=== PATIENT | female | born 1990 | race Caucasian/White ===

== ENCOUNTER 2024-12-13 16:11 | Emergency (ER) | payer BC ==
[2024-12-13] MEDS ORDERED: dexAMETHasone 10 MG/ML VIAL ONE (17:45)
[2024-12-13] MEDS ORDERED: predniSONE 20 MG TAB ONE (17:45)
[2024-12-13] MEDS ORDERED: DIPHENHYDRAMINE 50 MG/ML VIAL ONE (17:45)
[2024-12-13] MEDS ORDERED: FAMOTIDINE 20 MG/2 ML VIAL IV ONE (17:45)
[2024-12-13] MEDS ORDERED: ONDANSETRON 4 MG/2 ML VIAL ONE (17:45)
[2024-12-13] MEDS ORDERED: NA CHLORIDE 0.9% 1,000 ML ONE (17:46)
[2024-12-13 17:51] LABS: Absolute Basophils 0.1 K/uL (0-0.5); Absolute Eosinophils 0.1 K/uL (0-0.5); Absolute Lymphocytes (CBC) 2.1 K/uL (0.7-4.9); Absolute Monocytes 0.6 K/uL (0.1-1.3); Basophils % 0.6 % (0-1.3); Eosinophils % 0.4 % (0-4.4); Hematocrit 43.6 % (36.0-45.0); Hemoglobin 14.6 g/dL (12.0-15.0); Lymphocytes % 16.5 % (15.3-44.8); MCH 30.6 pg (27.0-35.0); MCHC 33.5 g/dL (32.0-36.0); MCV 91.5 fL (80-100); MPV 8.4 fL (7.6-11.3); Monocytes % 4.6 % (3.3-12.3); Neutrophils % 77.9 % (41.7-73.7); Nucleated Red Blood Cells % 0.1 % (0-0); Platelets 332 thou/uL (152-406); RBC Red Blood Cell Count 4.76 M/uL (3.86-4.86); Red Cell Distribution Width 13.6 % (12.1-15.2)
[2024-12-13 17:55] LABS: Specific Gravity 1.026 (1.005-1.030)
[2024-12-13 18:07] LABS: Specific Gravity 1.026 (1.005-1.030); Sqamous Epithelial <5 /HPF (None Seen); Urine Bacteria None Seen /HPF (<20); Urine Bilirubin NEGATIVE (Negative); Urine Blood Trace (Negative); Urine Clarity Turbid (Clear); Urine Color Yellow (Yellow); Urine Culture Reflex Order NOT NEEDED; Urine Glucose NEGATIVE (Negative); Urine Ketones NEGATIVE (Negative); Urine Microscopic Reflex YN ORDER UMIC; Urine Mucus 2+ /HPF (None Seen); Urine Nitrite NEGATIVE (Negative); Urine Protein NEGATIVE (Negative); Urine RBC None Seen /HPF (None Seen); Urine Urobilinogen Normal (Normal); Urine WBC None Seen /HPF (<5); Urine pH 5.5 (5.0-7.0)
[2024-12-13 18:10] LABS: ALT/SGPT 16 U/L (13-56); Albumin 3.3 g/dL (3.4-5.0); Albumin/Globulin Ratio 0.9 (1.1-1.8); Alkaline Phosphatase 53 U/L (45-117); Anion Gap 9.2 mEq/L (5.0-15.0); BUN Blood Urea Nitrogen 11 mg/dL (7-18); Bicarbonate 24 mEq/L (21-32); Bilirubin Total 0.5 mg/dL (0.2-1.0); Globulin 3.7 g/dL (2.3-3.5); Glomerular Filtration Rate 68 ml/min (=/>90); Glucose Level 99 mg/dL (74-106); Potassium 4.2 mEq/L (3.5-5.1); Sodium Level 138 mEq/L (136-145)
[2024-12-13 18:19] LABS: AST/SGOT < 10 U/L (15-37)
--- NOTE | 2024-12-13 18:46 | ER ---
Nurse's Notes [facility] Name: Sharon Correa Age: 34 yrs Sex: Female : 1990 Arrival Date: 12/13/2024 Time: 16:11 Bed 4 Private MD: Diagnosis: Nausea with vomiting, unspecified;Diarrhea, unspecified;Abdominal pain, Generalized;Urticaria, unspecified Presentation: 12/13 16:57 Chief complaint: Patient states: about 7:30 this morning patient started having me1 abdominal cramps, n/v/d with cold sweats that lasted for 3 hours, associated lightheadedness and developed hives all over her body. Took benadryl and hives have resolved. The same thing happened on November 20 while honeymooning in [place] but this time symptoms were much more severe than before. Coronavirus screen: Vaccine status: Patient reports being unvaccinated. Ebola Screen: No symptoms or risks identified at this time. Initial Sepsis Screen: Does the patient meet any 2 criteria? HR > 90 bpm. Does the patient have a suspected source of infection? No. Patient's initial sepsis screen is negative. Risk Assessment: Do you want to hurt yourself or someone else? Patient reports no desire to harm self or others. Onset of symptoms was December 13, 2024 at 07:30. 16:57 Method Of Arrival: Ambulatory [facility] 16:57 Acuity: GREG 3 me1 Triage Assessment: 17:05 General: Appears in no apparent distress. comfortable, Behavior is cooperative, bp appropriate for age, anxious. Pain: Denies pain. EENT: No deficits noted. Neuro: No deficits noted. Cardiovascular: No deficits noted. Respiratory: No deficits noted. GI: Reports diarrhea, nausea, vomiting. : No signs and/or symptoms were reported regarding the genitourinary system. Derm: Reports itching. Musculoskeletal: No deficits noted. 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 - Infectious Disease History:: Denies. - Social history:: Smoking status: Patient denies any tobacco usage or history of. Screenin:56 [facility] ED Fall Risk Assessment (Adult) History of falling in the last 3 months, bp including since admission No falls in past 3 months (0 pts) Confusion or Disorientation No (0 pts) Intoxicated or Sedated No (0 pts) Impaired Gait No (0 pts) Mobility Assist Device Used No (0 pt) Altered Elimination No (0 pt) Score/Fall Risk Level 0 - 2 = Low Risk Oriented to surroundings. Abuse screen: Denies threats or abuse. Denies injuries from another. Nutritional screening: No deficits noted. Tuberculosis screening: No symptoms or risk factors identified. Assessment: 17:10 General: Appears in no apparent distress. comfortable, Behavior is calm, cooperative, bp appropriate for age. Pain: Denies pain. Neuro: No deficits noted. Cardiovascular: No deficits noted. Respiratory: Airway is patent Respiratory effort is even, unlabored. GI: Abdomen is non-distended. : No signs and/or symptoms were reported regarding the genitourinary system. EENT: No deficits noted. Derm: Reports itching. Musculoskeletal: No deficits noted. 19:19 Reassessment: Patient appears in no apparent distress at this time. Patient and/or bm8 family updated on plan of care and expected duration. Pain level reassessed. Patient is alert, oriented x 3, equal unlabored respirations, skin warm/dry/pink. Patient denies pain at this time. Patient states feeling better. Patient states symptoms have improved. 19:23 Reassessment: Pt waiting for DR nielsen to speak with them before leaving. bm8 Vital Signs: 16:57 BP 118 / 87; Pulse 112; Resp 18; Temp 98.2; Pulse Ox 99% ; Weight 113.4 kg; Height 5 me1 ft. 9 in. ; Pain 4/10; 19:19 BP 117 / 70; Pulse 85; Resp 18; Temp 98.2; Pulse Ox 99% ; Pain 0/10; bm8 16:57 Body Mass Index 36.92 (113.40 kg, 175.26 cm) me1 16:57 Pain Scale: Adult me1 19:19 Pain Scale: Adult bm8 [place] Coma Score: 19:19 Eye Response: spontaneous(4). Motor Response: obeys commands(6). Verbal Response: bm8 oriented(5). Total: 15. ED Course: 16:25 Patient arrived in ED. ts1 16:48 Jaylon Nielsen MD is Attending Physician. kary 17:01 Triage completed. me1 17:01 Arm band placed on Patient placed in waiting room. me1 17:38 Nghia Oconnor, RN is Primary Nurse. bp 17:54 Initial lab(s) drawn, by co, sent to lab. Urine collected: clean catch specimen, clear. bp Inserted saline lock: 20 gauge in right antecubital area, using aseptic technique. Blood collected. Flushed with 10 mL NS. 17:56 Patient has correct armband on for positive identification. bp 18:44 Trinity Boland MD is Referral Physician. kary 18:44 Nabil Covington MD is Referral Physician. [facility] 19:19 Provided Education on: post er care, wound care. bm8 19:19 No provider procedures requiring assistance completed. IV discontinued, intact, bm8 bleeding controlled, No redness/swelling at site. Pressure dressing applied. Administered Medications: 17:54 Drug: Famotidine IVP 40 mg IVP once; dilute with 10 mL 0.9% NaCl; give over 2 minutes bp Route: IVP; Site: right antecubital; 19:21 Follow up: Response: No adverse reaction bm8 17:54 Drug: Decadron - Dexamethasone IVP 10 mg IVP once Route: IVP; Site: right antecubital; bp 19:21 Follow up: Response: No adverse reaction bm8 17:54 Drug: predniSONE PO 40 mg PO once Route: PO; bp 19:21 Follow up: Response: No adverse reaction bm8 17:55 Drug: NS 0.9% IV 1000 ml IV at 1000 ml once; to be given as a bolus over 60 minutes bp Route: IV; Rate: 1000 ml; Site: right antecubital; 19:22 Follow up: Response: No adverse reaction; IV Status: Completed infusion bm8 17:55 Drug: Ondansetron IVP 8 mg IVP once; over 2 minutes Route: IVP; Site: right antecubital;bp 19:22 Follow up: Response: No adverse reaction bm8 17:55 Drug: diphenhydrAMINE IVP 50 mg IVP once Route: IVP; Site: right antecubital; bp 19:22 Follow up: Response: No adverse reaction bm8 19:19 Drug: Onokhuig-Hgjekhbfzl-Zkejxdeax Topical Ointment 1 application Topical once Route: bm8 Topical; Site: affected area; Medication: 19:19 VIS not applicable for this client. bm8 Outcome: 18:45 Discharge ordered by . kary 19:19 Discharged to home ambulatory, with family, bm8 19:19 Condition: stable 19:19 Discharge instructions given to patient, family, Instructed on discharge instructions, follow up and referral plans. no drinking with medication, no driving heavy equipment, medication usage, safety practices, Demonstrated understanding of instructions, follow-up care, medications, Prescriptions given X x5 19:28 Patient left the ED. bm8 Signatures: Jaylon Nielsen MD MD cha Peltier, Brian, RN RN bp Allyn Oliva, PAS PAS ts1 Hanna Cortés, RN RN me1 Jordan Miranda RN RN bm8
--- NOTE | 2024-12-13 18:46 | EDPHYS ---
Physician Documentation [facility] Name: Sharon Correa Age: 34 yrs Sex: Female : 1990 Arrival Date: 12/13/2024 Time: 16:11 Bed 4 Private MD: ED Physician Jaylon Nielsen HPI: 12/13 18:42 This 34 yrs old Female presents to ER via Ambulatory with complaints of kary Nausea/Vomiting/Diarrhea, Hives. 18:42 The patient presents to the emergency department with nausea, vomiting, diarrhea, that kary is continuous. Onset: The symptoms/episode began/occurred this morning. Possible causes: unknown. The symptoms are aggravated by nothing. The symptoms are alleviated by nothing. Associated signs and symptoms: Pertinent positives: abdominal pain, diarrhea, nausea, vomiting. Severity of symptoms: At their worst the symptoms were moderate in the emergency department the symptoms are unchanged. The patient has not experienced similar symptoms in the past. 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 - Infectious Disease History:: Denies. - Social history:: Smoking status: Patient denies any tobacco usage or history of. ROS: 18:43 Constitutional: Negative for fever, chills, and weight loss, Eyes: Negative for injury, kary pain, redness, and discharge, ENT: Negative for injury, pain, and discharge, Neck: Negative for injury, pain, and swelling, Respiratory: Negative for shortness of breath, cough, wheezing, and pleuritic chest pain, Back: Negative for injury and pain, : Negative for injury, bleeding, discharge, and swelling, MS/Extremity: Negative for injury and deformity, Skin: Negative for injury, rash, and discoloration, Neuro: Negative for headache, weakness, numbness, tingling, and seizure, Psych: Negative for depression, anxiety, suicide ideation, homicidal ideation, and hallucinations, Allergy/Immunology: Negative for hives, rash, and allergies, Endocrine: Negative for neck swelling, polydipsia, polyuria, polyphagia, and marked weight changes, Hematologic/Lymphatic: Negative for swollen nodes, abnormal bleeding, and unusual bruising, 18:43 Cardiovascular: Positive for palpitations, 18:43 Abdomen/GI: Positive for abdominal pain, nausea and vomiting, diarrhea, Exam: 18:43 Constitutional: This is a well developed, well nourished patient who is awake, alert, kary and in no acute distress. Head/Face: Normocephalic, atraumatic. Eyes: Pupils equal round and reactive to light, extra-ocular motions intact. Lids and lashes normal. Conjunctiva and sclera are non-icteric and not injected. Cornea within normal limits. Periorbital areas with no swelling, redness, or edema. ENT: Nares patent. No nasal discharge, no septal abnormalities noted. Tympanic membranes are normal and external auditory canals are clear. Oropharynx with no redness, swelling, or masses, exudates, or evidence of obstruction, uvula midline. Mucous membranes moist. Neck: Trachea midline, no thyromegaly or masses palpated, and no cervical lymphadenopathy. Supple, full range of motion without nuchal rigidity, or vertebral point tenderness. No Meningismus. Chest/axilla: Normal chest wall appearance and motion. Nontender with no deformity. No lesions are appreciated. Cardiovascular: Regular rate and rhythm with a normal S1 and S2. No gallops, murmurs, or rubs. Normal PMI, no JVD. No pulse deficits. Respiratory: Lungs have equal breath sounds bilaterally, clear to auscultation and percussion. No rales, rhonchi or wheezes noted. No increased work of breathing, no retractions or nasal flaring. Abdomen/GI: Soft, non-tender, with normal bowel sounds. No distension or tympany. No guarding or rebound. No evidence of tenderness throughout. Back: No spinal tenderness. No costovertebral tenderness. Full range of motion. Skin: Warm, dry with normal turgor. Normal color with no rashes, no lesions, and no evidence of cellulitis. MS/ Extremity: Pulses equal, no cyanosis. Neurovascular intact. Full, normal range of motion., bilateral aka Neuro: Awake and alert, GCS 15, oriented to person, place, time, and situation. Cranial nerves II-XII grossly intact. Motor strength 5/5 in all extremities. Sensory grossly intact. Cerebellar exam normal. Normal gait. Psych: Awake, alert, with orientation to person, place and time. Behavior, mood, and affect are within normal limits. 18:43 Abdomen/GI: Inspection: abdomen appears normal, Bowel sounds: normal, Palpation: soft, nontender, in all quadrants, Liver: no appreciated palpable abnormalities, Hernia: not appreciated, Vital Signs: 16:57 BP 118 / 87; Pulse 112; Resp 18; Temp 98.2; Pulse Ox 99% ; Weight 113.4 kg; Height 5 me1 ft. 9 in. ; Pain 4/10; 19:19 BP 117 / 70; Pulse 85; Resp 18; Temp 98.2; Pulse Ox 99% ; Pain 0/10; bm8 16:57 Body Mass Index 36.92 (113.40 kg, 175.26 cm) me1 16:57 Pain Scale: Adult me1 19:19 Pain Scale: Adult bm8 Dru Coma Score: 19:19 Eye Response: spontaneous(4). Motor Response: obeys commands(6). Verbal Response: bm8 oriented(5). Total: 15. MDM: 16:48 Medical Screening Exam initiated [facility] 12/13 16:49 Order name: CBC with Diff; Complete Time: 18:42 [facility] 12/13 16:49 Order name: CMP; Complete Time: 18:42 [facility] 12/13 16:49 Order name: PREGU; Complete Time: 18:42 [facility] 12/13 16:49 Order name: UA Rfx Manuel Cult if indicated; Complete Time: 18:42 [facility] 12/13 18:49 Order name: Wound dressing: GREAT TOE; Complete Time: 19:02 [facility] Administered Medications: 17:54 Drug: Famotidine IVP 40 mg IVP once; dilute with 10 mL 0.9% NaCl; give over 2 minutes bp Route: IVP; Site: right antecubital; 19:21 Follow up: Response: No adverse reaction bm8 17:54 Drug: Decadron - Dexamethasone IVP 10 mg IVP once Route: IVP; Site: right antecubital; bp 19:21 Follow up: Response: No adverse reaction bm8 17:54 Drug: predniSONE PO 40 mg PO once Route: PO; bp 19:21 Follow up: Response: No adverse reaction bm8 17:55 Drug: NS 0.9% IV 1000 ml IV at 1000 ml once; to be given as a bolus over 60 minutes bp Route: IV; Rate: 1000 ml; Site: right antecubital; 19:22 Follow up: Response: No adverse reaction; IV Status: Completed infusion bm8 17:55 Drug: Ondansetron IVP 8 mg IVP once; over 2 minutes Route: IVP; Site: right antecubital;bp 19:22 Follow up: Response: No adverse reaction bm8 17:55 Drug: diphenhydrAMINE IVP 50 mg IVP once Route: IVP; Site: right antecubital; bp 19:22 Follow up: Response: No adverse reaction bm8 19:19 Drug: Yieimggs-Ogzmfvvvti-Lcrtexuyg Topical Ointment 1 application Topical once Route: bm8 Topical; Site: affected area; Disposition Summary: 12/13/24 18:45 Discharge Ordered Notes: Location: Home kary Problem: new kary Symptoms: have improved kary Condition: Stable kary Diagnosis - Nausea with vomiting, unspecified kary - Diarrhea, unspecified kary - Abdominal pain, Generalized kary - Urticaria, unspecified kary Followup: kary - With: Private Physician - When: 2 - 3 days - Reason: Recheck today's complaints, Continuance of care, Re-evaluation by your physician Followup: kary - With: Trinity Boland MD - When: 2 - 3 days - Reason: Recheck today's complaints, Re-evaluation by your physician Followup: kary - With: Nabil Covington MD - When: 2 - 3 days - Reason: Recheck today's complaints, Re-evaluation by your physician Discharge Instructions: - Discharge Summary Sheet kary - Abdominal Pain, Adult kary - Food Choices to Help Relieve Diarrhea, Adult kary - Diarrhea, Adult kary - Hives kary - Nausea and Vomiting, Adult kary - Abdominal Pain, Adult, Oetg-wz-Hxui kary - Hives, [id number] [facility] Forms: - Medication Reconciliation Form [facility] - Antibiotic Education kary - Prescription Opioid Use [facility] - Patient Portal Instructions [facility] - Leadership Thank You Letter [facility] Prescriptions: - ondansetron 4 mg Oral Tablet,disintegrating - take 1 tablet ORAL route every 6 hours as needed for nausea and vomiting; 20 kary tablet; Refills: 0, Product Selection Permitted - Cipro 250 mg Oral tablet - take 1 tablet ORAL route every 12 hours; 14 tablet; Refills: 0, Product kary Selection Permitted - Hydroxyzine HCl 25 mg Oral tablet - take 1 tablet ORAL route every 6 hours As needed; 20 tablet; Refills: 0, [facility] Product Selection Permitted - Pepcid 20 mg Oral tablet - take 1 tablet ORAL route every 12 hours for 21 days; 42 tablet; Refills: 0, [facility] Product Selection Permitted - dicyclomine 20 mg Oral tablet - take 1 tablet ORAL route 4 times per day; 28 tablet; Refills: 0, Product [facility] Selection Permitted Signatures: Dispatcher [employer] Jaylon Espinoza MD MD cha Peltier, Brian, RN RN bp Hanna Cortés, RN RN me1 Jordan Miranda RN RN bm8 Corrections: (The following items were deleted from the chart) 16:50 16:50 CBC+H.LAB.BRZ ordered. EDMS EDMS 16:50 16:50 COMPREHENSIVE METABOLIC PANEL+C.LAB.BRZ ordered. EDMS EDMS 16:50 16:50 Test, Urine+UC.LAB.BRZ ordered. EDMS EDMS 16:50 16:50 UA Rfx Manuel Cult if indicated+U.LAB.BRZ ordered. EDMS EDMS
[2024-12-13] MEDS ORDERED: NEOMYCIN/BAC/POLY OPTH 3.5GM ONE (19:09)
[2024-12-13 19:37] VITALS: TEMP 98.2; O2SAT 99
[2024-12-13 19:39] VITALS: BP 117/70
== END 2024-12-13 19:28 | disposition home or self-care (01) ==
LOC: ER 16:11
DX: R11.2 Nausea with vomiting, unspecified (principal); R19.7 Diarrhea, unspecified; R10.84 Generalized abdominal pain; L50.9 Urticaria, unspecified
CPT/HCPCS: 96361; 85025; 81001; 36415; 81025; 80053; 96375; 96374; 99284; J7512; J1200; J1100; J2405; J7030